=== PATIENT | female | born 1990 | race Caucasian/White ===

== ENCOUNTER 2020-06-08 02:10 | Emergency (ER) | payer OTHER ==
[~2020-06-08] VITALS: Ht 165.1 cm; Wt 72.6 kg
[2020-06-08 03:00] LABS: ABSOLUTE NEUTROPHILS 5.7 thou/uL (1.4-8.2); BASOPHILS 0.6 % (0.0-2.0); EOSINOPHILS 0.2 % (0.0-3.0); HEMATOCRIT 49.7 % (37.0-47.0); HEMOGLOBIN 16.6 gm/dL (12.0-15.0); LYMPHOCYTES 37.2 % (24.0-44.0); MCH 28.9 pg (26.0-34.0); MCHC 33.4 g/dL (28.0-37.0); MCV 86.4 fL (80.0-100.0); MONOCYTES 6.4 % (1.0-8.0); PLATELET COUNT 326 thou/uL (150-400); POLYS 55.6 % (36.0-66.0); RBC 5.75 mil/uL (4.20-5.00); RDW 14.6 % (10.5-14.5); WBC 10.3 thou/uL (4.0-11.0)
[2020-06-08 03:04] LABS: CALCIUM 7.7 mg/dL (8.5-10.1); CREATININE 0.8 mg/dL (0.6-1.0); POTASSIUM 3.3 mmol/L (3.5-5.1)
[2020-06-08 03:10] LABS: ALBUMIN 3.8 g/dL (3.4-5.0); DIRECT BILIRUBIN 0.3 mg/dL (<0.1-0.2); TOTAL BILIRUBIN 1.5 mg/dL (0.2-1.0); TOTAL PROTEIN 7.6 g/dL (6.4-8.2)
[2020-06-08 03:27] LABS: URINE BILIRUBIN NEGATIVE (Negative); URINE BLOOD 3+ (Negative); URINE CLARITY CLEAR; URINE COLOR YELLOW; URINE GLUCOSE-RANDOM* NEGATIVE (Negative); URINE KETONES NEGATIVE (Negative); URINE NITRITE-REFLEX NEGATIVE (Negative); URINE PROTEIN (DIPSTICK) NEGATIVE (Negative); URINE UROBILINOGEN 0.2 E.U./dl (0.2-1.0)
[2020-06-08 03:28] LABS: URINE LEUKOCYTES-REFLEX 1+ (Negative)
[2020-06-08 03:33] LABS: SQUAMOUS 4-10 Moderate /LPF (0-3); URINE RBC 3-10 Few /HPF (0-2)
[2020-06-08 03:34] LABS: BACTERIA-REFLEX 1-9 Few /HPF (None Seen); CASTS None Seen /LPF (None Seen); CRYSTALS None Seen /LPF (None Seen); MUCUS 0-3 Light strn/LPF (None Seen); URINE WBC-REFLEX 6-15 Few /HPF (0-5)
[2020-06-08 05:21] VITALS: BP 128/62
[2020-06-08] MEDS ORDERED: CHLORDIAZEPOXID25 M1 PO (05:21)
[2020-06-08] MEDS ORDERED: ZOFRAN ODT4 MG PO (05:27)
== END 2020-06-08 05:44 | disposition home or self-care (01) ==
LOC: ER 02:10
PROVIDERS: Emergency Medicine
DX: F10.239 Alcohol dependence with withdrawal, unspecified (principal); R11.0 Nausea

== ENCOUNTER 2020-06-23 21:12 | Emergency (ER) | payer OTHER ==
[~2020-06-23] VITALS: Ht 167.6 cm; Wt 55.3 kg
[~2020-06-23 21:12] MED LIST: CHLORDIAZEPOXID25 M1 PO; ZOFRAN ODT4 MG PO
[2020-06-23 21:27] LABS: URINE BILIRUBIN NEGATIVE (Negative); URINE BLOOD NEGATIVE (Negative); URINE CLARITY CLEAR; URINE COLOR YELLOW; URINE GLUCOSE-RANDOM* NEGATIVE (Negative); URINE KETONES NEGATIVE (Negative); URINE LEUKOCYTES-REFLEX NEGATIVE (Negative); URINE NITRITE-REFLEX NEGATIVE (Negative); URINE PROTEIN (DIPSTICK) NEGATIVE (Negative); URINE SPECIFIC GRAVITY 1.015 (1.005-1.035); URINE UROBILINOGEN 0.2 E.U./dl (0.2-1.0)
[2020-06-24 00:10] LABS: ABSOLUTE NEUTROPHILS 6.6 thou/uL (1.4-8.2); BASOPHILS 0.7 % (0.0-2.0); EOSINOPHILS 1.8 % (0.0-3.0); HEMATOCRIT 44.5 % (37.0-47.0); HEMOGLOBIN 15.5 gm/dL (12.0-15.0); LYMPHOCYTES 18.1 % (24.0-44.0); MCH 30.9 pg (26.0-34.0); MCHC 34.8 g/dL (28.0-37.0); MCV 88.8 fL (80.0-100.0); MONOCYTES 7.5 % (1.0-8.0); PLATELET COUNT 353 thou/uL (150-400); POLYS 71.9 % (36.0-66.0); RBC 5.01 mil/uL (4.20-5.00); RDW 16.3 % (10.5-14.5); WBC 9.2 thou/uL (4.0-11.0)
[2020-06-24 00:17] LABS: CALCIUM 9.3 mg/dL (8.5-10.1); CREATININE 0.7 mg/dL (0.6-1.0); POTASSIUM 4.6 mmol/L (3.5-5.1)
[2020-06-24 00:23] LABS: ALBUMIN 3.9 g/dL (3.4-5.0); TOTAL BILIRUBIN 0.6 mg/dL (0.2-1.0); TOTAL PROTEIN 8.1 g/dL (6.4-8.2)
[2020-06-24] MEDS ORDERED: NAPROSYN500 MG PO (01:32)
[2020-06-24 01:48] VITALS: BP 154/98
== END 2020-06-24 01:45 | disposition home or self-care (01) ==
LOC: ER 21:12
PROVIDERS: Emergency Medicine
DX: R07.89 Other chest pain (principal); R07.81 Pleurodynia; E66.9 Obesity, unspecified; R10.9 Unspecified abdominal pain; Z79.899 Other long term (current) drug therapy; Z68.1 Body mass index [BMI] 19.9 or less, adult; Z90.49 Acquired absence of other specified parts of digestive tract; Z97.5 Presence of (intrauterine) contraceptive device

== ENCOUNTER 2020-09-09 04:08 | Emergency (ER) | payer OTHER ==
[~2020-09-09] VITALS: Ht 167.6 cm; Wt 99.8 kg
[~2020-09-09 04:08] MED LIST changes: +NAPROSYN500 MG PO
[2020-09-09 05:06] LABS: URINE BILIRUBIN NEGATIVE (Negative); URINE BLOOD 1+ (Negative); URINE CLARITY CLEAR; URINE COLOR YELLOW; URINE GLUCOSE-RANDOM* NEGATIVE (Negative); URINE KETONES NEGATIVE (Negative); URINE LEUKOCYTES-REFLEX TRACE (Negative); URINE NITRITE-REFLEX NEGATIVE (Negative); URINE PROTEIN (DIPSTICK) NEGATIVE (Negative); URINE SPECIFIC GRAVITY 1.015 (1.005-1.035); URINE UROBILINOGEN 0.2 E.U./dl (0.2-1.0)
[2020-09-09 05:08] LABS: ABSOLUTE NEUTROPHILS 2.8 thou/uL (1.4-8.2); BASOPHILS 1.1 % (0.0-2.0); EOSINOPHILS 0.2 % (0.0-3.0); HEMATOCRIT 48.7 % (37.0-47.0); HEMOGLOBIN 16.5 gm/dL (12.0-15.0); LYMPHOCYTES 52.2 % (24.0-44.0); MCHC 33.8 g/dL (28.0-37.0); MCV 85.9 fL (80.0-100.0); PLATELET COUNT 381 thou/uL (150-400); POLYS 39.5 % (36.0-66.0); RBC 5.67 mil/uL (4.20-5.00); RDW 14.6 % (10.5-14.5); WBC 7.2 thou/uL (4.0-11.0)
[2020-09-09 05:12] LABS: CALCIUM 8.9 mg/dL (8.5-10.1); CREATININE 0.8 mg/dL (0.6-1.0); POTASSIUM 3.2 mmol/L (3.5-5.1)
[2020-09-09 05:13] LABS: CASTS None Seen /LPF (None Seen); CRYSTALS None Seen /LPF (None Seen); MUCUS 0-3 Light strn/LPF (None Seen); SQUAMOUS 0-3 Few /LPF (0-3); URINE WBC-REFLEX None Seen /HPF (0-5)
[2020-09-09 05:14] LABS: URINE RBC 0-2 Rare /HPF (0-2)
[2020-09-09 05:18] LABS: ALBUMIN 4.3 g/dL (3.4-5.0); DIRECT BILIRUBIN 0.3 mg/dL (<0.1-0.2); TOTAL BILIRUBIN 1.3 mg/dL (0.2-1.0); TOTAL PROTEIN 8.1 g/dL (6.4-8.2)
[2020-09-09 05:19] LABS: APTT 25.3 Seconds (24.5-32.8); PROTIME 10.5 Seconds (9.3-11.4)
[2020-09-09] MEDS ORDERED: ZOFRAN ODT4 MG PO (05:53)
[2020-09-09] MEDS ORDERED: CHLORDIAZEPOXID25 M1 PO (05:53)
[2020-09-09 06:08] VITALS: BP 123/87
== END 2020-09-09 06:08 | disposition home or self-care (01) ==
LOC: ER 04:08
PROVIDERS: Emergency Medicine
DX: F10.939 Alcohol use, unspecified with withdrawal, unspecified (principal); R11.0 Nausea; R10.9 Unspecified abdominal pain; Y90.7 Blood alcohol level of 200-239 mg/100 ml

== ENCOUNTER 2020-09-30 18:20 | Emergency (ER) | payer OTHER ==
[~2020-09-30] VITALS: Ht 167.6 cm; Wt 99.8 kg
[2020-09-30 19:07] LABS: ABSOLUTE NEUTROPHILS 6.9 thou/uL (1.4-8.2); BASOPHILS 0.9 % (0.0-2.0); HEMATOCRIT 48.6 % (37.0-47.0); HEMOGLOBIN 16.2 gm/dL (12.0-15.0); LYMPHOCYTES 19.6 % (24.0-44.0); MCH 29.5 pg (26.0-34.0); MCHC 33.4 g/dL (28.0-37.0); MCV 88.5 fL (80.0-100.0); MONOCYTES 4.1 % (1.0-8.0); PLATELET COUNT 398 thou/uL (150-400); POLYS 74.4 % (36.0-66.0); RBC 5.49 mil/uL (4.20-5.00); RDW 14.6 % (10.5-14.5); WBC 9.2 thou/uL (4.0-11.0)
[2020-09-30 19:09] LABS: URINE BILIRUBIN NEGATIVE (Negative); URINE BLOOD TRACE (Negative); URINE CLARITY CLEAR; URINE COLOR YELLOW; URINE GLUCOSE-RANDOM* NEGATIVE (Negative); URINE KETONES NEGATIVE (Negative); URINE LEUKOCYTES-REFLEX TRACE (Negative); URINE NITRITE-REFLEX NEGATIVE (Negative); URINE PROTEIN (DIPSTICK) NEGATIVE (Negative); URINE SPECIFIC GRAVITY 1.015 (1.005-1.035); URINE UROBILINOGEN 0.2 E.U./dl (0.2-1.0)
[2020-09-30 19:15] LABS: ANION GAP 10 mmol/L (7-16); BUN 11 mg/dL (7-18); CALCIUM 9.8 mg/dL (8.5-10.1); CHLORIDE 104 mmol/L (98-107); CO2 24 mmol/L (21-32); CREATININE 0.9 mg/dL (0.6-1.0); GLUCOSE 98 mg/dL (74-106); POTASSIUM 3.5 mmol/L (3.5-5.1); SODIUM 138 mmol/L (136-145)
[2020-09-30 19:20] LABS: ALBUMIN 4.3 g/dL (3.4-5.0); DIRECT BILIRUBIN < 0.1 mg/dL (<0.1-0.2); LIPASE 89 U/L (73-393); SGOT 16 U/L (15-37); SGPT 33 U/L (14-59); TOTAL BILIRUBIN 0.5 mg/dL (0.2-1.0); TOTAL PROTEIN 8.4 g/dL (6.4-8.2)
[2020-09-30] MEDS ORDERED: ONDANSETRON HCL4 M2 PO (20:17)
[2020-09-30 20:39] VITALS: BP 108/62
== END 2020-09-30 20:40 | disposition home or self-care (01) ==
LOC: ER 18:20
PROVIDERS: Nurse Practitioner
DX: R10.11 Right upper quadrant pain (principal); R11.0 Nausea

== ENCOUNTER 2021-06-22 19:42 | Emergency (ER) | payer OTHER ==
[~2021-06-22] VITALS: Ht 165.1 cm; Wt 99.8 kg
[~2021-06-22 19:42] MED LIST changes: +ONDANSETRON HCL4 M2 PO
[2021-06-22] MEDS ORDERED: PREVACID30 MG PO (19:54)
[2021-06-22 20:06] LABS: URINE BILIRUBIN NEGATIVE (Negative); URINE BLOOD TRACE (Negative); URINE CLARITY CLEAR; URINE COLOR YELLOW; URINE GLUCOSE-RANDOM* NEGATIVE (Negative); URINE KETONES NEGATIVE (Negative); URINE NITRITE-REFLEX NEGATIVE (Negative); URINE PROTEIN (DIPSTICK) NEGATIVE (Negative); URINE UROBILINOGEN 0.2 E.U./dl (0.2-1.0)
[2021-06-22 20:07] LABS: URINE LEUKOCYTES-REFLEX 2+ (Negative)
[2021-06-22 20:11] LABS: SQUAMOUS 4-10 Moderate /LPF (0-3); URINE WBC-REFLEX 0-5 Rare /HPF (0-5)
[2021-06-22 20:12] LABS: BACTERIA-REFLEX 1-9 Few /HPF (None Seen); CASTS None Seen /LPF (None Seen); CRYSTALS None Seen /LPF (None Seen); URINE RBC 1-2 Rare /HPF (NONE SEEN)
[2021-06-22] MEDS ORDERED: CEPHALEXIN500 MG PO (20:44)
[2021-06-22] MEDS ORDERED: ZOFRAN ODT4 MG PO (20:44)
[2021-06-22 20:55] VITALS: BP 129/82
== END 2021-06-22 21:11 | disposition home or self-care (01) ==
LOC: ER 19:42
PROVIDERS: Nurse Practitioner Family
DX: N39.0 Urinary tract infection, site not specified (principal); R11.0 Nausea; Z79.899 Other long term (current) drug therapy